=== PATIENT | female | born 1950 | race Caucasian/White ===

== ENCOUNTER → 2019-10-13 | Outpatient (CLI) | payer OTHER ==
[~2019-10-13] MED LIST: ARIP2TAB35 PO; ASPI81TA59 PO; CELE200C PO; CRESTOR20 MG PO; DOCU50CA9 PO; DULA1.5P SQ; EMPA25TA PO; LACT1CAP6 PO; LORA-254 PO; LOSA50TA86 PO; METF10007 PO; MULT-245 PO; OMEG1CAP50 PO; OMEP20TA63 PO; PREG150C PO; ROPI3TAB PO; SERT50TA PO; SUMA50TA3 PO; TOPI100T42 PO; VENL150C PO; VITA1TAB19 PO
== END | disposition home or self-care (01) ==
LOC: LAB 06:56
PROVIDERS: ATTEND Registered Nurse
DX: Z01.818 Encounter for other preprocedural examination (principal); Z11.59 Encounter for screening for other viral diseases; Z12.11 Encounter for screening for malignant neoplasm of colon; Z80.0 Family history of malignant neoplasm of digestive organs; Z86.010 Personal history of colon polyps
CPT/HCPCS: C9803; U0003; 36415

== ENCOUNTER → 2019-10-18 | Day surgery (SDC) | payer OTHER ==
[~2019-10-18] MED LIST changes: +IPRATRPIUM/ALBUTEROL 0.5/2.5MG 3 ML NEBU. NEB PRN; +IV RINGERS SOLUTION,LACTATED 1,000 ML IV SCH; +MIDAZOLAM HCL PF 2 MG/2 ML VIAL. IV ONE; +ONDANSETRON PF 4 MG/2 ML VIAL. IV PRN; +PROPOFOL 10,000 MCG/ML (20ML) VIAL IV ONE
[2019-10-18 08:32] VITALS: BP 112/51
--- NOTE | 2019-10-19 17:07 | PATHOLOGY ---
[facility] Accession Number: [id number] . 01 Material submitted: . colon - ASCENDING COLON POLYP. Modifiers: ascending . 01 Clinical history: . None provided . 02 Diagnosis: Colon biopsy, ascending colon polyp: - Tubular adenoma. (JPM:[facility]; 10/19/2019) [facility]/19/2019 0852 Local . 02 Comment: There is no high-grade dysplasia or evidence of malignancy. (JPM:[facility]; 10/19/2019) . 02 Electronically signed: . Baldemar Hernandez MD, Pathologist NPI- [id number] . 01 Gross description: . The specimen is received in formalin, labeled "Jahairagirma Owensigan, ascending polyp". Received are two segments of pale prieto soft tissue ranging in size from 0.3 to 0.4 cm in maximum dimensions. The specimen is submitted entirely in cassette A1. ([facility]; 10/18/2019) QA/QA 10/18/2019 1641 Local . 02 Pathologist provided ICD-10: D12.2 . 02 CPT . 038929 Specimen Comment: A courtesy copy of this report has been sent to [phone] Specimen Comment: [phone] Specimen Comment: Report sent to / DR KELLER Performed at: 01 [facility] [address], [place] [id number] MD Jose Garg MD Phone: [phone] Performed at: 02 [facility] [address], [place] [id number] MD Baldemar Hernandez MD Phone: [phone]
== END ==
LOC: SURG 06:29
PROVIDERS: ATTEND Emergency Medicine
DX: Z12.11 Encounter for screening for malignant neoplasm of colon (principal); D12.2 Benign neoplasm of ascending colon; G47.33 Obstructive sleep apnea (adult) (pediatric); K21.9 Gastro-esophageal reflux disease without esophagitis; I10 Essential (primary) hypertension; E66.01 Morbid (severe) obesity due to excess calories; E11.9 Type 2 diabetes mellitus without complications; G43.909 Migraine, unspecified, not intractable, without status migrainosus; M19.90 Unspecified osteoarthritis, unspecified site; Z98.890 Other specified postprocedural states; Z88.8 Allergy status to other drugs, medicaments and biological substances; Z88.1 Allergy status to other antibiotic agents; Z86.010 Personal history of colon polyps; Z79.82 Long term (current) use of aspirin; Z79.899 Other long term (current) drug therapy; Z68.32 Body mass index [BMI] 32.0-32.9, adult
CPT/HCPCS: 45380; 82947; 88305; J2704; J7120; 43239